=== PATIENT | male | born 2000 | race Caucasian/White ===

== ENCOUNTER 2025-10-03 15:35 | Emergency (ER) | payer OTHER ==
[~2025-10-03] VITALS: Ht 180.3 cm; Wt 75.0 kg
[2025-10-03 15:45] VITALS: O2SAT 95
[2025-10-03 15:47] VITALS: BP 148/92; PULSE 115; RESP 18; TEMP 36.7; O2SAT 98
[2025-10-03] MEDS: LIDOCAINE HCL 1% 20ML VIAL INFIL ONE (18:40)
[2025-10-03] MEDS: BACITRACIN ZINC OINT UDPKT TOP ONE (18:40)
[2025-10-03] MEDS: ACETAMINOPHEN 325MG TABLET PO ONE (18:45)
[2025-10-03] MEDS ORDERED: BO1 TP (19:02)
[2025-10-03] MEDS ORDERED: IBUP-1455 MT (19:02)
== END 2025-10-03 19:26 | disposition home or self-care (01) ==
LOC: ER 15:35
DX: S61.412A Laceration without foreign body of left hand, initial encounter (principal); Z91.52 Personal history of nonsuicidal self-harm; X58.XXXA Exposure to other specified factors, initial encounter; Y93.89 Activity, other specified; Y92.89 Other specified places as the place of occurrence of the external cause; Y99.8 Other external cause status
CPT/HCPCS: 99283; 12002; J2003